=== PATIENT | male | born 1980 | race Caucasian/White ===

== ENCOUNTER 2018-02-07 10:22 | Observation (INO) | payer OTHER ==
[2018-02-07] MEDS ORDERED: Sodium Chloride 0.9% 2.5 ML Syringe FLUSH PRN (10:50)
[2018-02-07] MEDS ORDERED: Sodium Chloride 0.9% 10 ML Syringe FLUSH PRN (10:50)
[2018-02-07] MEDS ORDERED: Sodium Chloride 0.9% 1,000 ML IV ONE (10:51)
[2018-02-07] MEDS ORDERED: Pantoprazole 40 MG Vial IVPUSH ONE (10:51)
[2018-02-07] MEDS ORDERED: Ondansetron 4 MG/2 ML SDV IVPUSH ONE (10:51)
--- NOTE | 2018-02-07 10:55 | EDM.PDOC ---
ED HPI GENERAL MEDICAL PROBLEM - General Chief Complaint: Gastrointestinal Problem Stated Complaint: VOMITING BLOOD Time Seen by Provider: 02/07/18 10:41 - History of Present Illness INITIAL COMMENTS - FREE TEXT/NARRATIVE: HISTORY AND PHYSICAL: History of present illness: The patient is a 37-year-old male who presents with complaints of vomiting for the last 3 days which has been mostly what he has been eating as well as bile were clear and today he noticed some blood in the vomitus and was concerned. He has had upper abdominal/epigastric pain on and off for the last 3 days and has had nausea with the pain started after the vomiting. He's had no chest pain shortness of breath fevers or chills and no diarrhea. He had a normal bowel movement today was not black or bloody and not diarrhea. He says he ate [place] food 3 days ago at a restaurant but he is not sure if that started the process. He has had no exotic travel and he does have a history of "ulcer disease" that was diagnosed clinically and he has never had an endoscopy. He was on medications for this years ago but has not had problems recently. He has no history of food intolerance and does drink large amounts of caffeine but no alcohol. Currently in the ED he is nauseated and having some dry heaves and says he has some epigastric discomfort but it is not excruciating. Review of systems: As per history of present illness and below otherwise all systems reviewed and negative. Past medical history: As per history of present illness and as reviewed below otherwise noncontributory. Surgical history: As per history of present illness and as reviewed below otherwise noncontributory. Social history: No reported history of drug or alcohol abuse. Family history: As per history of present illness and as reviewed below otherwise noncontributory. Physical exam: General: Well-developed well-nourished overweight man who is nontoxic and vital signs are noted by me. HEENT: Atraumatic, normocephalic, negative for conjunctival pallor or scleral icterus, mucous membranes tacky, throat clear, neck supple, nontender, trachea midline. Lungs: Clear to auscultation, breath sounds equal bilaterally, chest nontender. There is no tenderness with palpation of the chest wall no crepitus appreciated Heart: S1S2, regular rate and rhythm no overt murmurs Abdomen: Soft, nondistended, mild epigastric tenderness on palpation and there is no rebound or guarding. Bowel sounds are normoactive Negative for masses or hepatosplenomegaly. Pelvis: Stable nontender. Genitourinary: Deferred. Rectal: Deferred. Extremities: Atraumatic, no pedal edema and full range of motion without defects or deficits. Neurovascular unremarkable. Neuro: Awake, alert, oriented. Cranial nerves II through XII unremarkable. Cerebellum unremarkable. Motor and sensory unremarkable throughout. Exam nonfocal. Diagnostics: CBC CMP amylase lipase UA H. pylori abdominal and chest x-rays Therapeutics: IV fluids Zofran and Protonix Zosyn 1350; this was discussed with Dr. Lama with respect to the WBC count CT scan findings and the H. pylori positive status. She would like to observe the patient overnight and would like IV fluids at maintenance as well as Zosyn to be started. I've also discussed all testing results with the patient and he is agreeable to stay in the hospital. Impression: Duodenal ulcer disease H. pylori positive Definitive disposition and diagnosis as appropriate pending reevaluation and review of above. throat Pain Score (Numeric/FACES): 6 - Related Data Allergies Allergy/AdvReac Type Severity Reaction Status Date / Time No Known Allergies Allergy Verified 02/07/18 10:33 Home Meds: Home Meds . [No Known Home Meds] 05/07/16 [History] Past Medical History - Past Health History Medical/Surgical History: Denies Medical/Surgical History - Infectious Disease History Infectious Disease History: Reports: Chicken Pox Social & Family History - Family History Family Medical History: Noncontributory - Tobacco Use Smoking Status *Q: Current Every Day Smoker Years of Tobacco use: 17 Packs/Tins Daily: 2 - Caffeine Use Caffeine Use: Reports: Soda - Recreational Drug Use Recreational Drug Use: No ED ROS GENERAL - Review of Systems Review Of Systems: ROS reveals no pertinent complaints other than HPI. ED EXAM, GENERAL - Physical Exam Exam: See Below (See dictation) Course - Vital Signs Last Recorded V/S: Last Vital Signs Temp 36.3 C 02/07/18 10:31 Pulse 80 02/07/18 10:31 Resp 16 02/07/18 10:31 BP 146/94 H 02/07/18 10:31 Pulse Ox 95 02/07/18 10:31 - Orders/Labs/Meds Orders: Active Orders 24 hr Category Date Time Status Patient Status [ADT] Stat ADT 02/07/18 13:57 Active UA W/MICROSCOPIC [URIN] Stat Lab 02/07/18 13:00 Ordered Lactated Ringers [Ringers, Lactated] 1,000 ml Med 02/07/18 14:00 Active IV ASDIRECTED Piperacillin/Tazobactam [Piperacil-Tazobact] 4.5 gm Med 02/07/18 13:56 Active Sodium Chloride 0.9% [Normal Saline] 100 ml IV ONETIME Sodium Chloride 0.9% [Saline Flush] Med 02/07/18 10:50 Active 10 ml FLUSH ASDIRECTED PRN Sodium Chloride 0.9% [Saline Flush] Med 02/07/18 10:50 Active 2.5 ml FLUSH ASDIRECTED PRN Saline Lock Insert [OM.PC] Stat Oth 02/07/18 10:50 Ordered Medication Orders Lactated Ringer's (Ringers, Lactated) 1,000 mls @ 150 mls/hr IV ASDIRECTED FREDDY Piperacillin Sod/Tazobactam (Sod 4.5 gm/ Sodium Chloride) 100 mls @ 100 mls/hr IV ONETIME ONE Stop: 02/07/18 14:55 Sodium Chloride (Saline Flush) 10 ml FLUSH ASDIRECTED PRN PRN Reason: Keep Vein Open Sodium Chloride (Saline Flush) 2.5 ml FLUSH ASDIRECTED PRN PRN Reason: Keep Vein Open Labs: Laboratory Tests 02/07/18 02/07/18 02/07/18 Range/Units 11:05 11:05 11:05 WBC 21.66 H (4.0-11.0) K/uL RBC 5.81 (4.50-5.90) M/uL Hgb 17.6 H (13.0-17.0) g/dL Hct 49.5 (38.0-50.0) % MCV 85.2 (80.0-98.0) fL MCH 30.3 (27.0-32.0) pg MCHC 35.6 (31.0-37.0) g/dL RDW Std Deviation 39.0 (28.0-62.0) fl RDW Coeff of Rusty 13 (11.0-15.0) % Plt Count 308 (150-400) K/uL MPV 10.00 (7.40-12.00) fL Add Manual Diff YES Neutrophils % (Manual) 89 H (48.0-80.0) % Band Neutrophils % 2 % Lymphocytes % (Manual) 9 L (16.0-40.0) % Nucleated RBC % 0.0 /100WBC Absolute Seg Neuts 19.3 H (1.4-5.7) Band Neutrophils # 0.4 Lymphocytes # (Manual) 1.9 (0.6-2.4) Nucleated RBCs # 0 K/uL Lactate (0.20-2.00) mmol/L Sodium 135 L (136-148) mmol/L Potassium 3.6 (3.5-5.1) mmol/L Chloride 94 L (98-107) mmol/L Carbon Dioxide 32.7 H (21.0-32.0) mmol/L BUN 16 (7.0-18.0) mg/dL Creatinine 0.9 (0.8-1.3) mg/dL Est Cr Clr Drug Dosing 100.43 mL/min Estimated GFR (MDRD) > 60.0 ml/min Glucose 150 H (74-106) mg/dL Calcium 9.8 (8.5-10.1) mg/dL Total Bilirubin 1.0 (0.2-1.0) mg/dL AST 23 (15-37) IU/L ALT 47 (14-63) IU/L Alkaline Phosphatase 66 (46-116) U/L Total Protein 8.7 H (6.4-8.2) g/dL Albumin 5.0 (3.4-5.0) g/dL Globulin 3.7 H (2.0-3.5) g/dL Albumin/Globulin Ratio 1.4 (1.3-2.8) Amylase 62 (25-115) U/L Lipase 70 L (73-393) U/L Urine Color Urine Appearance Urine pH (5.0-8.0) Ur Specific [place] (1.001-1.035) Urine Protein (NEGATIVE) mg/dL Urine Glucose (UA) (NEGATIVE) mg/dL Urine Ketones (NEGATIVE) mg/dL Urine Occult Blood (NEGATIVE) Urine Nitrite (NEGATIVE) Urine Bilirubin (NEGATIVE) Urine Urobilinogen (<2.0) EU/dL Ur Leukocyte Esterase (NEGATIVE) Urine RBC (0-2/HPF) Urine WBC (0-5/HPF) Ur Epithelial Cells (NONE-FEW) Urine Bacteria (NEGATIVE) H. pylori IgG Antibody POSITIVE H (NEG) 02/07/18 02/07/18 Range/Units 11:57 13:00 WBC (4.0-11.0) K/uL RBC (4.50-5.90) M/uL Hgb (13.0-17.0) g/dL Hct (38.0-50.0) % MCV (80.0-98.0) fL MCH (27.0-32.0) pg MCHC (31.0-37.0) g/dL RDW Std Deviation (28.0-62.0) fl RDW Coeff of Rusty (11.0-15.0) % Plt Count (150-400) K/uL MPV (7.40-12.00) fL Add Manual Diff Neutrophils % (Manual) (48.0-80.0) % Band Neutrophils % % Lymphocytes % (Manual) (16.0-40.0) % Nucleated RBC % /100WBC Absolute Seg Neuts (1.4-5.7) Band Neutrophils # Lymphocytes # (Manual) (0.6-2.4) Nucleated RBCs # K/uL Lactate 1.7 (0.20-2.00) mmol/L Sodium (136-148) mmol/L Potassium (3.5-5.1) mmol/L Chloride (98-107) mmol/L Carbon Dioxide (21.0-32.0) mmol/L BUN (7.0-18.0) mg/dL Creatinine (0.8-1.3) mg/dL Est Cr Clr Drug Dosing mL/min Estimated GFR (MDRD) ml/min Glucose (74-106) mg/dL Calcium (8.5-10.1) mg/dL Total Bilirubin (0.2-1.0) mg/dL AST (15-37) IU/L ALT (14-63) IU/L Alkaline Phosphatase (46-116) U/L Total Protein (6.4-8.2) g/dL Albumin (3.4-5.0) g/dL Globulin (2.0-3.5) g/dL Albumin/Globulin Ratio (1.3-2.8) Amylase (25-115) U/L Lipase (73-393) U/L Urine Color YELLOW Urine Appearance CLEAR Urine pH 7.5 (5.0-8.0) Ur Specific [place] 1.010 (1.001-1.035) Urine Protein NEGATIVE (NEGATIVE) mg/dL Urine Glucose (UA) NEGATIVE (NEGATIVE) mg/dL Urine Ketones TRACE H (NEGATIVE) mg/dL Urine Occult Blood SMALL H (NEGATIVE) Urine Nitrite NEGATIVE (NEGATIVE) Urine Bilirubin NEGATIVE (NEGATIVE) Urine Urobilinogen 0.2 (<2.0) EU/dL Ur Leukocyte Esterase NEGATIVE (NEGATIVE) Urine RBC 1-2 (0-2/HPF) Urine WBC 1-2 (0-5/HPF) Ur Epithelial Cells FEW (NONE-FEW) Urine Bacteria RARE (NEGATIVE) H. pylori IgG Antibody (NEG) Meds: Medications Generic Name Dose Route Start Last Admin Trade Name Jayq PRN Reason Stop Dose Admin Lactated Ringer's 1,000 mls @ 150 mls/hr 02/07/18 14:00 Ringers, Lactated IV ASDIRECTED FREDDY Piperacillin Sod/Tazobactam 100 mls @ 100 mls/hr 02/07/18 13:56 Sod 4.5 gm/ Sodium Chloride IV 02/07/18 14:55 ONETIME ONE Sodium Chloride 10 ml 02/07/18 10:50 Saline Flush FLUSH ASDIRECTED PRN Keep Vein Open Sodium Chloride 2.5 ml 02/07/18 10:50 Saline Flush FLUSH ASDIRECTED PRN Keep Vein Open Discontinued Medications Generic Name Dose Route Start Last Admin Trade Name Freq PRN Reason Stop Dose Admin Sodium Chloride 1,000 mls @ 999 mls/hr 02/07/18 10:51 02/07/18 11:20 Normal Saline IV 02/07/18 11:51 999 mls/hr STAT ONE Administration Iopamidol 100 ml 02/07/18 12:58 02/07/18 13:04 Isovue Multipack-370 (76%) IVPUSH 02/07/18 12:59 100 ml ONETIME STA Administration Ondansetron HCl 4 mg 02/07/18 10:51 02/07/18 11:17 Zofran IVPUSH 02/07/18 10:52 4 mg ONETIME ONE Administration Pantoprazole Sodium 80 mg 02/07/18 10:51 02/07/18 11:20 Protonix Iv IVPUSH 02/07/18 10:52 80 mg .BOLUS ONE Administration Departure - Departure Time of Disposition: 14:04 Disposition: Refer to Observation Condition: Good Clinical Impression: Duodenal ulcer, Helicobacter pylori infection - Discharge Information Referrals: PCP,None [Primary Care Provider] - Forms: ED Department Discharge - My Orders Last 24 Hours: My Active Orders 02/07/18 10:50 Sodium Chloride 0.9% [Saline Flush] 10 ml FLUSH ASDIRECTED PRN Sodium Chloride 0.9% [Saline Flush] 2.5 ml FLUSH ASDIRECTED PRN Saline Lock Insert [OM.PC] Stat 02/07/18 13:00 UA W/MICROSCOPIC [URIN] Stat 02/07/18 13:56 Piperacillin/Tazobactam [Piperacil-Tazobact] 4.5 gm Sodium Chloride 0.9% [ Normal Saline] 100 ml IV ONETIME 02/07/18 13:57 Patient Status [ADT] Stat 02/07/18 14:00 Lactated Ringers [Ringers, Lactated] 1,000 ml IV ASDIRECTED - Assessment/Plan Last 24 Hours: My Active Orders 02/07/18 10:50 Sodium Chloride 0.9% [Saline Flush] 10 ml FLUSH ASDIRECTED PRN Sodium Chloride 0.9% [Saline Flush] 2.5 ml FLUSH ASDIRECTED PRN Saline Lock Insert [OM.PC] Stat 02/07/18 13:00 UA W/MICROSCOPIC [URIN] Stat 02/07/18 13:56 Piperacillin/Tazobactam [Piperacil-Tazobact] 4.5 gm Sodium Chloride 0.9% [ Normal Saline] 100 ml IV ONETIME 02/07/18 13:57 Patient Status [ADT] Stat 02/07/18 14:00 Lactated Ringers [Ringers, Lactated] 1,000 ml IV ASDIRECTED
--- NOTE | 2018-02-07 11:45 | CR ---
EXAMINATION: Chest and Abdomen HISTORY: Pain COMPARISON: 05/07/2016 TECHNIQUE: PA chest and AP and upright views of the abdomen FINDINGS: The lungs are clear without focal consolidation. No pleural effusion or pneumothorax. Cardi ac mediastinal silhouette is normal. Free air under the diaphragm. Bowel gas is noted throughout the colon and rectum without evidence of a bowel obstruction. No organomegaly. No abnormal calcifications projecting over the kidneys. Osseous structures appear normal. IMPRESSION: Grossly unremarkable abdominal series.
[2018-02-07 11:55] LABS: CHLORIDE,CL 94 mmol/L (98-107); SODIUM,NA 135 mmol/L (136-148)
[2018-02-07] MEDS ORDERED: Iopamidol 755 MG/ML 500 ML Multipack Bottle IVPUSH STA (12:58)
[2018-02-07] MEDS ORDERED: Piperacillin/Tazobactam 4.5 GM in Sodium Chloride 0.9% 100 ML IV ONE (13:56)
[2018-02-07] MEDS ORDERED: Lactated Ringers 1,000 ML IV SCH (14:00)
--- NOTE | 2018-02-07 14:00 | CT ---
CT of the abdomen and pelvis with contrast. HISTORY: Pain TECHNIQUE: Axial CT images were obtained of the abdomen and pelvis following administration of 100 mL of Isovue-370 in the right antecubital fossa without complication. Coronal and sagittal reconstructi ons obtained. FINDINGS: The lung bases are clear, no pleural effusion. There is likely mild fatty infiltration of the liver. The spleen, adrenal glands, and pancreas appear normal. The gallbladder is normal. There is mild stranding adjacent to the proximal duodenum. The vi sualized large and small bowel are normal in caliber without evidence of obstruction. No focal ra lonic inflammation or stranding. The kidneys enhance and function symmetrically without evidence of obstructive uropathy. Tiny renal c ortical cysts. The large and small bowel are normal in caliber without evidence of obstruction. No focal pericolonic inflammation or stranding. Appendix is normal. The urinary bladder is normal. No pelvic lymphadenopa thy or free pelvic fluid. No suspicious osseous abnormalities identified. IMPRESSION: 1. Mild stranding adjacent to the proximal duodenum. This may represent duodenitis or peptic ulcer di sease.
[2018-02-07] MEDS ORDERED: Promethazine 25 MG/ML SDV IM PRN (14:52)
[2018-02-07] MEDS ORDERED: diphenhydrAMINE 50 MG/ML SDV IVPUSH PRN (14:52)
[2018-02-07] MEDS ORDERED: Ondansetron 4 MG/2 ML SDV IVPUSH PRN (14:52)
[2018-02-07] MEDS ORDERED: Scopolamine 1.5 MG Transdermal Patch TRDERM PRN (14:54)
[2018-02-07] MEDS ORDERED: HYDROmorphone 1 MG/ML Syringe IVPUSH PRN (14:56)
--- NOTE | 2018-02-07 15:07 | PCM.HP ---
H&P History of Present Illness - General Date of Service: 02/07/18 Source of Information: Patient History Limitations: Reports: No Limitations - History of Present Illness Initial Comments - Free Text/Narative: Patient is a 37-year-old male who presents with 4 days of nausea vomiting and abdominal pain. He has never had anything like this before. He complains of subjective fevers and chills as well as diaphoresis. His abdominal pain is generalized and became worse today. He presented to the emergency room due to some hematemesis. His vital signs were stable on arrival. He was given 1 L of normal saline. CBC showed a leukocytosis of 21,000 with a left shift. His hemoglobin was within normal limits. He denies any changes in his stool. His last bowel movement was yesterday and has been passing gas today. He feels mildly bloated. On physical exam his abdomen is normal. CT scan of the abdomen pelvis show mild stranding on the duodenum suggestive of duodenitis. He tested positive for H. pylori. He was given IV Protonix 80 mg. He feels better and has had one episode of nausea but no vomiting since arrival. Abdomen Pain Score (Numeric/FACES): 1 throat Pain Score (Numeric/FACES): 6 - Related Data Allergies/Adverse Reactions: Allergies Allergy/AdvReac Type Severity Reaction Status Date / Time No Known Allergies Allergy Verified 02/07/18 10:33 Home Medications: Home Meds . [No Known Home Meds] 05/07/16 [History] Past Medical History - Past Health History Medical/Surgical History: Denies Medical/Surgical History - Infectious Disease History Infectious Disease History: Reports: Chicken Pox Social & Family History - Family History Family Medical History: Noncontributory - Tobacco Use Smoking Status *Q: Heavy Tobacco Smoker - Caffeine Use Caffeine Use: Reports: Soda - Alcohol Use Alcohol Use History: No H&P Review of Systems - Review of Systems: Review Of Systems: ROS reveals no pertinent complaints other than HPI. Exam - Exam Exam: See Below - Exam General: Alert, Oriented HEENT: Conjunctiva Clear, Mucosa Moist & [place], Posterior Pharynx Clear Neck: Trachea Midline Lungs: Clear to Auscultation, Normal Respiratory Effort Cardiovascular: Regular Rate, Regular Rhythm GI/Abdominal Exam: Soft, Non-Tender, No Distention, No Mass Back Exam: Normal Inspection, Full Range of Motion Extremities: Normal Inspection, Normal Range of Motion Skin: Warm, Dry, Intact Neuro Extensive - Mental Status: Alert, Oriented x3 Psychiatric: Alert, Normal Affect, Normal Mood - Patient Data Result Diagrams: 02/08/18 04:50 02/08/18 05:03 - Problem List (1) Duodenal ulcer SNOMED Code(s): 79196157 ICD Code: K26.9 - DUODENAL ULCER, UNSP ACUTE OR CHRONIC, W/O HEMOR OR PERF Status: Acute Current Visit: Yes (2) Helicobacter pylori infection SNOMED Code(s): 224408181 ICD Code: A04.8 - OTHER SPECIFIED BACTERIAL INTESTINAL INFECTIONS Status: Acute Current Visit: Yes Problem List Initiated/Reviewed/Updated: Yes Assessment/Plan Comment:: The patient is dehydrated with a high white count and evidence of duodenitis. Will admit to the hospital for IV fluid resuscitation, IV antibiotics, IV Protonix, and bowel rest. He should be kept strictly nothing by mouth for the next 24 hours. I discussed the pathophysiology of H. pylori disease. I explained the need for a diagnostic EGD to look for any duodenal ulceration. We discussed the procedure and expected perioperative course. We discussed the risks including bleeding or perforation. He verbalized understanding and wishes to proceed. The scope will be added on tomorrow.
[2018-02-07] MEDS: Nicotine 14 MG/24 Hr Patch TRDERM SCH (16:59)
[2018-02-07] MEDS: Lactated Ringers 1,000 ML IV SCH (22:16)
[2018-02-07] MEDS: Piperacillin/Tazobactam 3.375 GM in Sodium Chloride 0.9% 50 ML IV SCH (22:18)
[2018-02-08 05:58] LABS: CHLORIDE,CL 103 mmol/L (98-107); SODIUM,NA 138 mmol/L (136-148)
[2018-02-08] MEDS: Lactated Ringers 1,000 ML IV SCH ×3 (06:40→20:27)
[2018-02-08] MEDS: Piperacillin/Tazobactam 3.375 GM in Sodium Chloride 0.9% 50 ML IV SCH (06:41)
[2018-02-08] MEDS ORDERED: Pantoprazole 40 MG Vial IVPUSH SCH (09:00)
[2018-02-08] MEDS: Nicotine 14 MG/24 Hr Patch TRDERM SCH (09:45)
--- NOTE | 2018-02-08 09:59 | PCM.PREANE ---
Preanesthetic Assessment - Anesthesia/Transfusion/Family Hx Anesthesia History: No Prior Anesthesia Family History of Anesthesia Reaction: No - Review of Systems General: No Symptoms Pulmonary: No Symptoms Cardiovascular: No Symptoms Neurological: No Symptoms Other: Reports: None - Physical Assessment NPO Status Date: 02/07/18 ASA Class: 2 Mental Status: Alert & Oriented x3 Airway Class: Mallampati = 1 Dentition: Reports: Normal Dentition ROM/Head Extension: Full Lungs: Clear to Auscultation, Normal Respiratory Effort Cardiovascular: Regular Rate, Regular Rhythm - Allergies Allergies/Adverse Reactions: Allergies Allergy/AdvReac Type Severity Reaction Status Date / Time No Known Allergies Allergy Verified 02/07/18 10:33 - Anesthesia Plan Pre-Op Medication Ordered: None - Acknowledgements Anesthesia Type Planned: MAC Pt an Appropriate Candidate for the Planned Anesthesia: Yes Alternatives and Risks of Anesthesia Discussed w Pt/Guardian: Yes Pt/Guardian Understands and Agrees with Anesthesia Plan: Yes PreAnesthesia Questionnaire - Past Health History Medical/Surgical History: Denies Medical/Surgical History - Infectious Disease History Infectious Disease History: Reports: Chicken Pox - SUBSTANCE USE Smoking Status *Q: Heavy Tobacco Smoker - HOME MEDS Home Medications: Home Meds . [No Known Home Meds] 05/07/16 [History] - CURRENT (IN HOUSE) MEDS Current Meds: Current Medications Discontinued Medications Fentanyl (Sublimaze) Confirm Administered Dose 100 mcg .ROUTE .STK-MED ONE Stop: 02/08/18 09:17 Lidocaine (Xylocaine-Mpf 2%) Confirm Administered Dose 5 ml .ROUTE .STK-MED ONE Stop: 02/08/18 09:17 Midazolam HCl (Versed 1 Mg/Ml) Confirm Administered Dose 2 mg .ROUTE .STK-MED ONE Stop: 02/08/18 09:17 Propofol (Diprivan 20 Ml) Confirm Administered Dose 400 mg .ROUTE .STK-MED ONE Stop: 02/08/18 09:17
--- NOTE | 2018-02-08 11:00 | PCM.OPNOTE ---
- General Post-Op/Procedure Note Date of Surgery/Procedure: 02/08/18 Operative Procedure(s): Diagnostic EGD with biopsy Findings: Severe esophagitis, multiple duodenal ulcers, severe gastritis with superficial ulcers. Pre Op Diagnosis: Duodenitis, H pylori infection Post-Op Diagnosis: Esophagitis, duodenitis, gastritis, duodenal ulcers Anesthesia Technique: [facility] [place] Primary Surgeon: Yanelis Lama Condition: Good
--- NOTE | 2018-02-08 11:02 | PCM.OPNOTE ---
- General Post-Op/Procedure Note Date of Surgery/Procedure: 02/08/18 Operative Procedure(s): Diagnostic EGD and colonoscopy Findings: Severe esophagitis, duodenitis and gastritis. Multiple ulcers of the duodenum. Pre Op Diagnosis: H pylori infection Post-Op Diagnosis: Esophagitis, duodenitis, gastritis, duodenal ulcers. Anesthesia Technique: [facility] [place] Primary Surgeon: Yanelis Lama Condition: Good Free Text/Narrative:: Intake & Output 02/07/18 02/08/18 02/08/18 22:59 06:59 14:59 Intake Total 1050 1050 Output Total 975 Balance 1050 75
--- NOTE | 2018-02-08 11:10 | PCM.HP ---
H&P History of Present Illness - General Date of Service: 02/08/18 Admit Problem/Dx: Admission Diagnosis/Problem Admission Diagnosis/Problem Duodenitis Source of Information: Patient History Limitations: Reports: No Limitations - History of Present Illness Initial Comments - Free Text/Narative: Patient presented to the ED with four days of nausea vomiting and the acute onset of hematemesis. This has been associated with abdominal cramping and pain. He has never had symptoms like this before. He c/o chills and subjective fever as well as diaphoresis. His vitals were stable on arrival. His WBC was 21K. H pylori antigen test was positive. CT abdomen pelvis showed evidence of duodenitis. He denied melana or hematochezia. Abdomen Pain Score (Numeric/FACES): 1 throat Pain Score (Numeric/FACES): 6 - Related Data Allergies/Adverse Reactions: Allergies Allergy/AdvReac Type Severity Reaction Status Date / Time No Known Allergies Allergy Verified 02/07/18 10:33 Home Medications: Home Meds . [No Known Home Meds] 05/07/16 [History] Past Medical History - Past Health History Medical/Surgical History: Denies Medical/Surgical History Gastrointestinal History: Reports: PUD - Infectious Disease History Infectious Disease History: Reports: Chicken Pox Social & Family History - Family History Family Medical History: Noncontributory - Tobacco Use Smoking Status *Q: Heavy Tobacco Smoker Years of Tobacco use: 18 Packs/Tins Daily: 2 Used Tobacco, but Quit: No Second Hand Smoke Exposure: No - Caffeine Use Caffeine Use: Reports: Soda - Recreational Drug Use Recreational Drug Use: No H&P Review of Systems - Review of Systems: Review Of Systems: ROS reveals no pertinent complaints other than HPI. Exam - Exam Exam: See Below - Vital Signs Vital Signs: Last Vital Signs Temp 37.1 C 02/08/18 07:41 Pulse 75 02/08/18 07:41 Resp 17 02/08/18 07:41 BP 109/73 02/08/18 07:41 Pulse Ox 92 L 02/08/18 07:41 Weight: 104.326 kg - Exam General: Alert, Oriented HEENT: Conjunctiva Clear, Mucosa Moist & [place], Posterior Pharynx Clear Neck: Supple, Trachea Midline Lungs: Clear to Auscultation, Normal Respiratory Effort Cardiovascular: Regular Rate, Regular Rhythm GI/Abdominal Exam: Normal Bowel Sounds, Soft, Non-Tender, No Distention, No Mass Back Exam: Normal Inspection, Full Range of Motion Extremities: Normal Inspection, Normal Range of Motion - Patient Data Lab Results Last 24 hrs: Laboratory Results - last 24 hr 02/07/18 02/07/18 02/07/18 Range/Units 11:05 11:05 11:05 WBC 21.66 H (4.0-11.0) K/uL RBC 5.81 (4.50-5.90) M/uL Hgb 17.6 H (13.0-17.0) g/dL Hct 49.5 (38.0-50.0) % MCV 85.2 (80.0-98.0) fL MCH 30.3 (27.0-32.0) pg MCHC 35.6 (31.0-37.0) g/dL RDW Std Deviation 39.0 (28.0-62.0) fl RDW Coeff of Rusty 13 (11.0-15.0) % Plt Count 308 (150-400) K/uL MPV 10.00 (7.40-12.00) fL Neut % (Auto) (48.0-80.0) % Lymph % (Auto) (16.0-40.0) % Will % (Auto) (0.0-15.0) % Eos % (Auto) (0.0-7.0) % Baso % (Auto) (0.0-1.5) % Neut # (Auto) (1.4-5.7) K/uL Lymph # (Auto) (0.6-2.4) K/uL Will # (Auto) (0.0-0.8) K/uL Eos # (Auto) (0.0-0.7) K/uL Baso # (Auto) (0.0-0.1) K/uL Add Manual Diff YES Neutrophils % (Manual) 89 H (48.0-80.0) % Band Neutrophils % 2 % Lymphocytes % (Manual) 9 L (16.0-40.0) % Nucleated RBC % 0.0 /100WBC Absolute Seg Neuts 19.3 H (1.4-5.7) Band Neutrophils # 0.4 Lymphocytes # (Manual) 1.9 (0.6-2.4) Nucleated RBCs # 0 K/uL Lactate (0.20-2.00) mmol/L Sodium 135 L (136-148) mmol/L Potassium 3.6 (3.5-5.1) mmol/L Chloride 94 L (98-107) mmol/L Carbon Dioxide 32.7 H (21.0-32.0) mmol/L BUN 16 (7.0-18.0) mg/dL Creatinine 0.9 (0.8-1.3) mg/dL Est Cr Clr Drug Dosing 100.43 mL/min Estimated GFR (MDRD) > 60.0 ml/min Glucose 150 H (74-106) mg/dL Calcium 9.8 (8.5-10.1) mg/dL Total Bilirubin 1.0 (0.2-1.0) mg/dL AST 23 (15-37) IU/L ALT 47 (14-63) IU/L Alkaline Phosphatase 66 (46-116) U/L Total Protein 8.7 H (6.4-8.2) g/dL Albumin 5.0 (3.4-5.0) g/dL Globulin 3.7 H (2.0-3.5) g/dL Albumin/Globulin Ratio 1.4 (1.3-2.8) Amylase 62 (25-115) U/L Lipase 70 L (73-393) U/L Urine Color Urine Appearance Urine pH (5.0-8.0) Ur Specific [place] (1.001-1.035) Urine Protein (NEGATIVE) mg/dL Urine Glucose (UA) (NEGATIVE) mg/dL Urine Ketones (NEGATIVE) mg/dL Urine Occult Blood (NEGATIVE) Urine Nitrite (NEGATIVE) Urine Bilirubin (NEGATIVE) Urine Urobilinogen (<2.0) EU/dL Ur Leukocyte Esterase (NEGATIVE) Urine RBC (0-2/HPF) Urine WBC (0-5/HPF) Ur Epithelial Cells (NONE-FEW) Urine Bacteria (NEGATIVE) H. pylori IgG Antibody POSITIVE H (NEG) 02/07/18 02/07/18 02/08/18 Range/Units 11:57 13:00 04:50 WBC 14.86 H (4.0-11.0) K/uL RBC 5.04 (4.50-5.90) M/uL Hgb 15.0 (13.0-17.0) g/dL Hct 44.2 (38.0-50.0) % MCV 87.7 (80.0-98.0) fL MCH 29.8 (27.0-32.0) pg MCHC 33.9 (31.0-37.0) g/dL RDW Std Deviation 41.2 (28.0-62.0) fl RDW Coeff of Rusty 13 (11.0-15.0) % Plt Count 243 (150-400) K/uL MPV 10.00 (7.40-12.00) fL Neut % (Auto) 72.7 (48.0-80.0) % Lymph % (Auto) 16.2 (16.0-40.0) % Will % (Auto) 10.5 (0.0-15.0) % Eos % (Auto) 0.5 (0.0-7.0) % Baso % (Auto) 0.1 (0.0-1.5) % Neut # (Auto) 10.8 H (1.4-5.7) K/uL Lymph # (Auto) 2.4 (0.6-2.4) K/uL Will # (Auto) 1.6 H (0.0-0.8) K/uL Eos # (Auto) 0.1 (0.0-0.7) K/uL Baso # (Auto) 0.0 (0.0-0.1) K/uL Add Manual Diff Neutrophils % (Manual) (48.0-80.0) % Band Neutrophils % % Lymphocytes % (Manual) (16.0-40.0) % Nucleated RBC % 0.0 /100WBC Absolute Seg Neuts (1.4-5.7) Band Neutrophils # Lymphocytes # (Manual) (0.6-2.4) Nucleated RBCs # 0 K/uL Lactate 1.7 (0.20-2.00) mmol/L Sodium (136-148) mmol/L Potassium (3.5-5.1) mmol/L Chloride (98-107) mmol/L Carbon Dioxide (21.0-32.0) mmol/L BUN (7.0-18.0) mg/dL Creatinine (0.8-1.3) mg/dL Est Cr Clr Drug Dosing mL/min Estimated GFR (MDRD) ml/min Glucose (74-106) mg/dL Calcium (8.5-10.1) mg/dL Total Bilirubin (0.2-1.0) mg/dL AST (15-37) IU/L ALT (14-63) IU/L Alkaline Phosphatase (46-116) U/L Total Protein (6.4-8.2) g/dL Albumin (3.4-5.0) g/dL Globulin (2.0-3.5) g/dL Albumin/Globulin Ratio (1.3-2.8) Amylase (25-115) U/L Lipase (73-393) U/L Urine Color YELLOW Urine Appearance CLEAR Urine pH 7.5 (5.0-8.0) Ur Specific [place] 1.010 (1.001-1.035) Urine Protein NEGATIVE (NEGATIVE) mg/dL Urine Glucose (UA) NEGATIVE (NEGATIVE) mg/dL Urine Ketones TRACE H (NEGATIVE) mg/dL Urine Occult Blood SMALL H (NEGATIVE) Urine Nitrite NEGATIVE (NEGATIVE) Urine Bilirubin NEGATIVE (NEGATIVE) Urine Urobilinogen 0.2 (<2.0) EU/dL Ur Leukocyte Esterase NEGATIVE (NEGATIVE) Urine RBC 1-2 (0-2/HPF) Urine WBC 1-2 (0-5/HPF) Ur Epithelial Cells FEW (NONE-FEW) Urine Bacteria RARE (NEGATIVE) H. pylori IgG Antibody (NEG) 02/08/18 Range/Units 05:03 WBC (4.0-11.0) K/uL RBC (4.50-5.90) M/uL Hgb (13.0-17.0) g/dL Hct (38.0-50.0) % MCV (80.0-98.0) fL MCH (27.0-32.0) pg MCHC (31.0-37.0) g/dL RDW Std Deviation (28.0-62.0) fl RDW Coeff of Rusty (11.0-15.0) % Plt Count (150-400) K/uL MPV (7.40-12.00) fL Neut % (Auto) (48.0-80.0) % Lymph % (Auto) (16.0-40.0) % Will % (Auto) (0.0-15.0) % Eos % (Auto) (0.0-7.0) % Baso % (Auto) (0.0-1.5) % Neut # (Auto) (1.4-5.7) K/uL Lymph # (Auto) (0.6-2.4) K/uL Will # (Auto) (0.0-0.8) K/uL Eos # (Auto) (0.0-0.7) K/uL Baso # (Auto) (0.0-0.1) K/uL Add Manual Diff Neutrophils % (Manual) (48.0-80.0) % Band Neutrophils % % Lymphocytes % (Manual) (16.0-40.0) % Nucleated RBC % /100WBC Absolute Seg Neuts (1.4-5.7) Band Neutrophils # Lymphocytes # (Manual) (0.6-2.4) Nucleated RBCs # K/uL Lactate (0.20-2.00) mmol/L Sodium 138 (136-148) mmol/L Potassium 3.9 (3.5-5.1) mmol/L Chloride 103 (98-107) mmol/L Carbon Dioxide 27.8 (21.0-32.0) mmol/L BUN 13 (7.0-18.0) mg/dL Creatinine 1.0 (0.8-1.3) mg/dL Est Cr Clr Drug Dosing 90.38 mL/min Estimated GFR (MDRD) > 60.0 ml/min Glucose 107 H (74-106) mg/dL Calcium 8.6 (8.5-10.1) mg/dL Total Bilirubin (0.2-1.0) mg/dL AST (15-37) IU/L ALT (14-63) IU/L Alkaline Phosphatase (46-116) U/L Total Protein (6.4-8.2) g/dL Albumin (3.4-5.0) g/dL Globulin (2.0-3.5) g/dL Albumin/Globulin Ratio (1.3-2.8) Amylase (25-115) U/L Lipase (73-393) U/L Urine Color Urine Appearance Urine pH (5.0-8.0) Ur Specific [place] (1.001-1.035) Urine Protein (NEGATIVE) mg/dL Urine Glucose (UA) (NEGATIVE) mg/dL Urine Ketones (NEGATIVE) mg/dL Urine Occult Blood (NEGATIVE) Urine Nitrite (NEGATIVE) Urine Bilirubin (NEGATIVE) Urine Urobilinogen (<2.0) EU/dL Ur Leukocyte Esterase (NEGATIVE) Urine RBC (0-2/HPF) Urine WBC (0-5/HPF) Ur Epithelial Cells (NONE-FEW) Urine Bacteria (NEGATIVE) H. pylori IgG Antibody (NEG) Result Diagrams: 02/08/18 04:50 02/08/18 05:03 - Problem List (1) Duodenal ulcer SNOMED Code(s): 74732563 ICD Code: K26.9 - DUODENAL ULCER, UNSP ACUTE OR CHRONIC, W/O HEMOR OR PERF Status: Acute Current Visit: Yes (2) Helicobacter pylori infection SNOMED Code(s): 998358172 ICD Code: A04.8 - OTHER SPECIFIED BACTERIAL INTESTINAL INFECTIONS Status: Acute Current Visit: Yes Problem List Initiated/Reviewed/Updated: Yes Orders Last 24hrs: Active Orders 24 hr Category Date Time Status Patient Status [ADT] Routine ADT 02/07/18 14:52 Active Intake and Output [RC] Care 02/07/18 14:53 Active Oxygen Therapy [RC] PRN Care 02/07/18 14:52 Active Up ad Seema [RC] ASDIRECTED Care 02/07/18 14:52 Active Vital Signs [RC] Q4H Care 02/07/18 14:52 Active Clear Liquid Diet [DIET] Diet 02/08/18 Dinner Ordered UA W/MICROSCOPIC [URIN] Stat Lab 02/07/18 13:00 Ordered Amoxicillin [Amoxil] Med 02/08/18 11:15 Ordered 1,000 mg PO BID Clarithromycin [Biaxin] Med 02/08/18 11:15 Ordered 500 mg PO BID HYDROmorphone [Dilaudid] Med 02/07/18 14:56 Active 0.5 mg IVPUSH Q1H PRN Lactated Ringers [Ringers, Lactated] 1,000 ml Med 02/07/18 15:00 Active IV ASDIRECTED Nicotine [Habitrol] Med 02/07/18 15:00 Active 14 mg TRDERM DAILY Ondansetron [Zofran] Med 02/07/18 14:52 Active 4 mg IVPUSH Q6H PRN Pantoprazole [ProTONIX] Med 02/08/18 17:00 Ordered 40 mg PO BIDAC Promethazine [Phenergan] Med 02/07/18 14:52 Active 25 mg IM Q6H PRN Scopolamine [Transderm-Scop] Med 02/07/18 14:54 Active 1.5 mg TRDERM Q72H PRN Sodium Chloride 0.9% [Saline Flush] Med 02/07/18 10:50 Active 10 ml FLUSH ASDIRECTED PRN Sodium Chloride 0.9% [Saline Flush] Med 02/07/18 10:50 Active 2.5 ml FLUSH ASDIRECTED PRN Sucralfate [Carafate] Med 02/08/18 11:30 Ordered 1 gm PO QIDACANDBED diphenhydrAMINE [Benadryl] Med 02/07/18 14:52 Active 25 mg IVPUSH Q4H PRN Saline Lock Insert [OM.PC] Stat Oth 02/07/18 10:50 Ordered Resuscitation Status Routine Resus Stat 02/07/18 14:52 Ordered Medication Orders Amoxicillin (Amoxil) 1,000 mg PO BID [facility] Clarithromycin (Biaxin) 500 mg PO BID [facility] Diphenhydramine HCl (Benadryl) 25 mg IVPUSH Q4H PRN PRN Reason: Itching Hydromorphone HCl (Dilaudid) 0.5 mg IVPUSH Q1H PRN PRN Reason: Abdominal Pain Last Admin: 02/07/18 19:27 Dose: 0.5 mg Lactated Ringer's (Ringers, Lactated) 1,000 mls @ 125 mls/hr IV ASDIRECTED [facility] Last Admin: 02/08/18 06:40 Dose: 125 mls/hr Infusion: 02/08/18 06:16 Dose: 125 mls/hr Admin: 02/07/18 22:16 Dose: 125 mls/hr Nicotine (Habitrol) 14 mg TRDERM DAILY [facility] Last Admin: 02/08/18 09:45 Dose: 14 mg Admin: 02/07/18 16:59 Dose: 14 mg Ondansetron HCl (Zofran) 4 mg IVPUSH Q6H PRN PRN Reason: Nausea/Vomiting Pantoprazole Sodium (Protonix) 40 mg PO BIDAC [facility] Promethazine HCl (Phenergan) 25 mg IM Q6H PRN PRN Reason: Nausea Scopolamine (Transderm-Scop) 1.5 mg TRDERM Q72H PRN PRN Reason: Nausea Sodium Chloride (Saline Flush) 10 ml FLUSH ASDIRECTED PRN PRN Reason: Keep Vein Open Sodium Chloride (Saline Flush) 2.5 ml FLUSH ASDIRECTED PRN PRN Reason: Keep Vein Open Sucralfate (Carafate) 1 gm PO QIDACANDBED [facility] Assessment/Plan Comment:: Patient is a 37 year old male with duodenitis and most likely ulcers from an acute H pylori infection. Will admit for close observation, IV fluids, IV antibiotics, and bowel rest. Will perform a diagnostic EGD tomorrow. We discussed the procedure, expected perioperative course and risks including bleeding or perforation. The patient verbalized understanding and wished to proceed.
--- NOTE | 2018-02-08 11:12 | PCM.PN ---
- General Info Date of Service: 02/08/18 Functional Status: Reports: Pain Controlled, Urinating - Review of Systems General: Reports: No Symptoms Pulmonary: Reports: No Symptoms Cardiovascular: Reports: No Symptoms Gastrointestinal: Reports: Abdominal Pain (mild), Flatus, Nausea. Denies: Constipation, Vomiting - Patient Data Vitals - Most Recent: Last Vital Signs Temp 37.1 C 02/08/18 07:41 Pulse 75 02/08/18 07:41 Resp 17 02/08/18 07:41 BP 109/73 02/08/18 07:41 Pulse Ox 92 L 02/08/18 07:41 Weight - Most Recent: 104.326 kg I&O - Last 24 Hours: Intake & Output 02/07/18 02/08/18 02/08/18 22:59 06:59 14:59 Intake Total 1050 1050 Output Total 975 Balance 1050 75 Lab Results Last 24 Hours: Laboratory Results - last 24 hr 02/07/18 02/07/18 02/07/18 Range/Units 11:05 11:05 11:05 WBC 21.66 H (4.0-11.0) K/uL RBC 5.81 (4.50-5.90) M/uL Hgb 17.6 H (13.0-17.0) g/dL Hct 49.5 (38.0-50.0) % MCV 85.2 (80.0-98.0) fL MCH 30.3 (27.0-32.0) pg MCHC 35.6 (31.0-37.0) g/dL RDW Std Deviation 39.0 (28.0-62.0) fl RDW Coeff of Rusty 13 (11.0-15.0) % Plt Count 308 (150-400) K/uL MPV 10.00 (7.40-12.00) fL Neut % (Auto) (48.0-80.0) % Lymph % (Auto) (16.0-40.0) % [place] % (Auto) (0.0-15.0) % Eos % (Auto) (0.0-7.0) % Baso % (Auto) (0.0-1.5) % Neut # (Auto) (1.4-5.7) K/uL Lymph # (Auto) (0.6-2.4) K/uL [place] # (Auto) (0.0-0.8) K/uL Eos # (Auto) (0.0-0.7) K/uL Baso # (Auto) (0.0-0.1) K/uL Add Manual Diff YES Neutrophils % (Manual) 89 H (48.0-80.0) % Band Neutrophils % 2 % Lymphocytes % (Manual) 9 L (16.0-40.0) % Nucleated RBC % 0.0 /100WBC Absolute Seg Neuts 19.3 H (1.4-5.7) Band Neutrophils # 0.4 Lymphocytes # (Manual) 1.9 (0.6-2.4) Nucleated RBCs # 0 K/uL Lactate (0.20-2.00) mmol/L Sodium 135 L (136-148) mmol/L Potassium 3.6 (3.5-5.1) mmol/L Chloride 94 L (98-107) mmol/L Carbon Dioxide 32.7 H (21.0-32.0) mmol/L BUN 16 (7.0-18.0) mg/dL Creatinine 0.9 (0.8-1.3) mg/dL Est Cr Clr Drug Dosing 100.43 mL/min Estimated GFR (MDRD) > 60.0 ml/min Glucose 150 H (74-106) mg/dL Calcium 9.8 (8.5-10.1) mg/dL Total Bilirubin 1.0 (0.2-1.0) mg/dL AST 23 (15-37) IU/L ALT 47 (14-63) IU/L Alkaline Phosphatase 66 (46-116) U/L Total Protein 8.7 H (6.4-8.2) g/dL Albumin 5.0 (3.4-5.0) g/dL Globulin 3.7 H (2.0-3.5) g/dL Albumin/Globulin Ratio 1.4 (1.3-2.8) Amylase 62 (25-115) U/L Lipase 70 L (73-393) U/L Urine Color Urine Appearance Urine pH (5.0-8.0) Ur Specific [place] (1.001-1.035) Urine Protein (NEGATIVE) mg/dL Urine Glucose (UA) (NEGATIVE) mg/dL Urine Ketones (NEGATIVE) mg/dL Urine Occult Blood (NEGATIVE) Urine Nitrite (NEGATIVE) Urine Bilirubin (NEGATIVE) Urine Urobilinogen (<2.0) EU/dL Ur Leukocyte Esterase (NEGATIVE) Urine RBC (0-2/HPF) Urine WBC (0-5/HPF) Ur Epithelial Cells (NONE-FEW) Urine Bacteria (NEGATIVE) H. pylori IgG Antibody POSITIVE H (NEG) 02/07/18 02/07/18 02/08/18 Range/Units 11:57 13:00 04:50 WBC 14.86 H (4.0-11.0) K/uL RBC 5.04 (4.50-5.90) M/uL Hgb 15.0 (13.0-17.0) g/dL Hct 44.2 (38.0-50.0) % MCV 87.7 (80.0-98.0) fL MCH 29.8 (27.0-32.0) pg MCHC 33.9 (31.0-37.0) g/dL RDW Std Deviation 41.2 (28.0-62.0) fl RDW Coeff of [place] 13 (11.0-15.0) % Plt Count 243 (150-400) K/uL MPV 10.00 (7.40-12.00) fL Neut % (Auto) 72.7 (48.0-80.0) % Lymph % (Auto) 16.2 (16.0-40.0) % [place] % (Auto) 10.5 (0.0-15.0) % Eos % (Auto) 0.5 (0.0-7.0) % Baso % (Auto) 0.1 (0.0-1.5) % Neut # (Auto) 10.8 H (1.4-5.7) K/uL Lymph # (Auto) 2.4 (0.6-2.4) K/uL [place] # (Auto) 1.6 H (0.0-0.8) K/uL Eos # (Auto) 0.1 (0.0-0.7) K/uL Baso # (Auto) 0.0 (0.0-0.1) K/uL Add Manual Diff Neutrophils % (Manual) (48.0-80.0) % Band Neutrophils % % Lymphocytes % (Manual) (16.0-40.0) % Nucleated RBC % 0.0 /100WBC Absolute Seg Neuts (1.4-5.7) Band Neutrophils # Lymphocytes # (Manual) (0.6-2.4) Nucleated RBCs # 0 K/uL Lactate 1.7 (0.20-2.00) mmol/L Sodium (136-148) mmol/L Potassium (3.5-5.1) mmol/L Chloride (98-107) mmol/L Carbon Dioxide (21.0-32.0) mmol/L BUN (7.0-18.0) mg/dL Creatinine (0.8-1.3) mg/dL Est Cr Clr Drug Dosing mL/min Estimated GFR (MDRD) ml/min Glucose (74-106) mg/dL Calcium (8.5-10.1) mg/dL Total Bilirubin (0.2-1.0) mg/dL AST (15-37) IU/L ALT (14-63) IU/L Alkaline Phosphatase (46-116) U/L Total Protein (6.4-8.2) g/dL Albumin (3.4-5.0) g/dL Globulin (2.0-3.5) g/dL Albumin/Globulin Ratio (1.3-2.8) Amylase (25-115) U/L Lipase (73-393) U/L Urine Color YELLOW Urine Appearance CLEAR Urine pH 7.5 (5.0-8.0) Ur Specific [place] 1.010 (1.001-1.035) Urine Protein NEGATIVE (NEGATIVE) mg/dL Urine Glucose (UA) NEGATIVE (NEGATIVE) mg/dL Urine Ketones TRACE H (NEGATIVE) mg/dL Urine Occult Blood SMALL H (NEGATIVE) Urine Nitrite NEGATIVE (NEGATIVE) Urine Bilirubin NEGATIVE (NEGATIVE) Urine Urobilinogen 0.2 (<2.0) EU/dL Ur Leukocyte Esterase NEGATIVE (NEGATIVE) Urine RBC 1-2 (0-2/HPF) Urine WBC 1-2 (0-5/HPF) Ur Epithelial Cells FEW (NONE-FEW) Urine Bacteria RARE (NEGATIVE) H. pylori IgG Antibody (NEG) 02/08/18 Range/Units 05:03 WBC (4.0-11.0) K/uL RBC (4.50-5.90) M/uL Hgb (13.0-17.0) g/dL Hct (38.0-50.0) % MCV (80.0-98.0) fL MCH (27.0-32.0) pg MCHC (31.0-37.0) g/dL RDW Std Deviation (28.0-62.0) fl RDW Coeff of Rusty (11.0-15.0) % Plt Count (150-400) K/uL MPV (7.40-12.00) fL Neut % (Auto) (48.0-80.0) % Lymph % (Auto) (16.0-40.0) % [place] % (Auto) (0.0-15.0) % Eos % (Auto) (0.0-7.0) % Baso % (Auto) (0.0-1.5) % Neut # (Auto) (1.4-5.7) K/uL Lymph # (Auto) (0.6-2.4) K/uL [place] # (Auto) (0.0-0.8) K/uL Eos # (Auto) (0.0-0.7) K/uL Baso # (Auto) (0.0-0.1) K/uL Add Manual Diff Neutrophils % (Manual) (48.0-80.0) % Band Neutrophils % % Lymphocytes % (Manual) (16.0-40.0) % Nucleated RBC % /100WBC Absolute Seg Neuts (1.4-5.7) Band Neutrophils # Lymphocytes # (Manual) (0.6-2.4) Nucleated RBCs # K/uL Lactate (0.20-2.00) mmol/L Sodium 138 (136-148) mmol/L Potassium 3.9 (3.5-5.1) mmol/L Chloride 103 (98-107) mmol/L Carbon Dioxide 27.8 (21.0-32.0) mmol/L BUN 13 (7.0-18.0) mg/dL Creatinine 1.0 (0.8-1.3) mg/dL Est Cr Clr Drug Dosing 90.38 mL/min Estimated GFR (MDRD) > 60.0 ml/min Glucose 107 H (74-106) mg/dL Calcium 8.6 (8.5-10.1) mg/dL Total Bilirubin (0.2-1.0) mg/dL AST (15-37) IU/L ALT (14-63) IU/L Alkaline Phosphatase (46-116) U/L Total Protein (6.4-8.2) g/dL Albumin (3.4-5.0) g/dL Globulin (2.0-3.5) g/dL Albumin/Globulin Ratio (1.3-2.8) Amylase (25-115) U/L Lipase (73-393) U/L Urine Color Urine Appearance Urine pH (5.0-8.0) Ur Specific [place] (1.001-1.035) Urine Protein (NEGATIVE) mg/dL Urine Glucose (UA) (NEGATIVE) mg/dL Urine Ketones (NEGATIVE) mg/dL Urine Occult Blood (NEGATIVE) Urine Nitrite (NEGATIVE) Urine Bilirubin (NEGATIVE) Urine Urobilinogen (<2.0) EU/dL Ur Leukocyte Esterase (NEGATIVE) Urine RBC (0-2/HPF) Urine WBC (0-5/HPF) Ur Epithelial Cells (NONE-FEW) Urine Bacteria (NEGATIVE) H. pylori IgG Antibody (NEG) Med Orders - Current: Current Medications Amoxicillin (Amoxil) 1,000 mg PO BID [facility] Clarithromycin (Biaxin) 500 mg PO BID [facility] Diphenhydramine HCl (Benadryl) 25 mg IVPUSH Q4H PRN PRN Reason: Itching Hydromorphone HCl (Dilaudid) 0.5 mg IVPUSH Q1H PRN PRN Reason: Abdominal Pain Last Admin: 02/07/18 19:27 Dose: 0.5 mg Lactated Ringer's (Ringers, Lactated) 1,000 mls @ 125 mls/hr IV ASDIRECTED [facility] Last Admin: 02/08/18 06:40 Dose: 125 mls/hr Nicotine (Habitrol) 14 mg TRDERM DAILY [facility] Last Admin: 02/08/18 09:45 Dose: 14 mg Ondansetron HCl (Zofran) 4 mg IVPUSH Q6H PRN PRN Reason: Nausea/Vomiting Pantoprazole Sodium (Protonix) 40 mg PO BIDAC [facility] Promethazine HCl (Phenergan) 25 mg IM Q6H PRN PRN Reason: Nausea Scopolamine (Transderm-Scop) 1.5 mg TRDERM Q72H PRN PRN Reason: Nausea Sodium Chloride (Saline Flush) 10 ml FLUSH ASDIRECTED PRN PRN Reason: Keep Vein Open Sodium Chloride (Saline Flush) 2.5 ml FLUSH ASDIRECTED PRN PRN Reason: Keep Vein Open Sucralfate (Carafate) 1 gm PO QIDACANDBED [facility] Discontinued Medications Sodium Chloride (Normal Saline) 1,000 mls @ 999 mls/hr IV STAT ONE Stop: 02/07/18 11:51 Last Admin: 02/07/18 11:20 Dose: 999 mls/hr Lactated Ringer's (Ringers, Lactated) 1,000 mls @ 150 mls/hr IV ASDIRECTED [facility]ED[facility] Last Infusion: 02/07/18 22:15 Dose: Infused Piperacillin Sod/Tazobactam (Sod 4.5 gm/ Sodium Chloride) 100 mls @ 100 mls/hr IV ONETIME ONE Stop: 02/07/18 14:55 Last Admin: 02/07/18 14:00 Dose: 100 mls/hr Piperacillin Sod/Tazobactam (Sod 3.375 gm/ Sodium Chloride) 50 mls @ 100 mls/ hr IV Q8H [facility] Last Infusion: 02/08/18 07:15 Dose: Infused Iopamidol (Isovue Multipack-370 (76%)) 100 ml IVPUSH ONETIME STA Stop: 02/07/18 12:59 Last Admin: 02/07/18 13:04 Dose: 100 ml Ondansetron HCl (Zofran) 4 mg IVPUSH ONETIME ONE Stop: 02/07/18 10:52 Last Admin: 02/07/18 11:17 Dose: 4 mg Pantoprazole Sodium (Protonix Iv) 80 mg IVPUSH .BOLUS ONE Stop: 02/07/18 10:52 Last Admin: 02/07/18 11:20 Dose: 80 mg Pantoprazole Sodium (Protonix Iv) 40 mg IVPUSH DAILY [facility] Last Admin: 02/08/18 09:24 Dose: 40 mg - Exam Quality Assessment: Supplemental Oxygen General: Alert, Oriented HEENT: Pupils Equal, Pupils Reactive Lungs: Normal Respiratory Effort Cardiovascular: Regular Rate GI/Abdominal Exam: Soft, Non-Tender, No Distention, No Mass - Problem List & Annotations (1) Duodenal ulcer SNOMED Code(s): 43490540 Code(s): K26.9 - DUODENAL ULCER, UNSP ACUTE OR CHRONIC, W/O HEMOR OR PERF Status: Acute Current Visit: Yes (2) Helicobacter pylori infection SNOMED Code(s): 066330730 Code(s): A04.8 - OTHER SPECIFIED BACTERIAL INTESTINAL INFECTIONS Status: Acute Current Visit: Yes - Problem List Review Problem List Initiated/Reviewed/Updated: Yes - My Orders Last 24 Hours: My Active Orders 02/07/18 14:52 Patient Status [ADT] Routine Oxygen Therapy [RC] PRN Up ad Seema [RC] ASDIRECTED Vital Signs [RC] Q4H Ondansetron [Zofran] 4 mg IVPUSH Q6H PRN Promethazine [Phenergan] 25 mg IM Q6H PRN diphenhydrAMINE [Benadryl] 25 mg IVPUSH Q4H PRN Resuscitation Status Routine 02/07/18 14:53 Intake and Output [RC] 02/07/18 14:54 Scopolamine [Transderm-Scop] 1.5 mg TRDERM Q72H PRN 02/07/18 14:56 HYDROmorphone [Dilaudid] 0.5 mg IVPUSH Q1H PRN 02/07/18 15:00 Lactated Ringers [Ringers, Lactated] 1,000 ml IV ASDIRECTED Nicotine [Habitrol] 14 mg TRDERM DAILY 02/08/18 11:15 Amoxicillin [Amoxil] 1,000 mg PO BID Clarithromycin [Biaxin] 500 mg PO BID 02/08/18 11:30 Sucralfate [Carafate] 1 gm PO QIDACANDBED 02/08/18 17:00 Pantoprazole [ProTONIX] 40 mg PO BIDAC 02/08/18 Dinner Clear Liquid Diet [DIET] - Plan Plan:: EGD showed severe esophagitis, duodenitis, and gastritis as well as multiple ulcers in the duodenal bulb. Will switch his antibiotics to amoxicillin, clarithromycin, and flagyl. Will add sucralfate QID. He can start on a clear liquid diet today. If he tolerates that today may advance to regular but will take things slow. Will keep overnight for close observation as he starts his diet.
--- NOTE | 2018-02-08 11:24 | PCM.POSTAN ---
POST ANESTHESIA ASSESSMENT - MENTAL STATUS Mental Status: Alert (Return to [facility] bed 207.), Oriented - RESPIRATORY Respiratory Status: Respiratory Rate WNL, Airway Patent, O2 Saturation Stable - CARDIOVASCULAR CV Status: Pulse Rate WNL, Blood Pressure Stable - GASTROINTESTINAL GI Status: No Symptoms - POST OP HYDRATION Hydration Status: Adequate & Stable
[2018-02-08] MEDS: Amoxicillin 500 MG Cap PO SCH ×2 (11:56→20:29)
[2018-02-08] MEDS: metroNIDAZOLE 250 MG Tab PO SCH ×3 (11:57→23:30)
[2018-02-08] MEDS: Sucralfate Suspension 1 GM/10 ML Cup PO SCH ×3 (11:57→20:30)
--- NOTE | 2018-02-08 14:17 | OR ---
SURGEON: ELO CHURCH MD DATE OF PROCEDURE: 02/07/2018 PREOPERATIVE DIAGNOSES: 1. Duodenitis. 2. Helicobacter pylori infection. POSTOPERATIVE DIAGNOSES: 1. Helicobacter pylori infection. 2. Esophagitis. 3. Gastritis. 4. Duodenitis. 5. Duodenal ulcers. PROCEDURE PERFORMED: Diagnostic esophagogastroduodenoscopy. ANESTHESIA: MAC. INSTRUMENT USED: Olympus endoscope. EXTENT OF EXAM: To first portion of duodenum. PREPARATION: Good. LIMITATIONS: Severe inflammation and ulceration of the duodenum. INDICATIONS: The patient is a 37-year-old male, who presented to the emergency room yesterday with complaints of four days of abdominal pain, nausea, vomiting, and hematemesis. He was found to have leukocytosis of 21,000 and had a positive H. pylori antigen test. CT of the abdomen and pelvis revealed duodenitis. The patient was admitted to the hospital and given IV fluids, IV antibiotics, IV PPIs, and bowel rest. He is feeling better this morning. The decision was made to perform a diagnostic EGD. I explained the procedure, the expected perioperative course as well as the risks and benefits. The risks include perforation or bleeding. The patient verbalized understanding and wishes to proceed. PROCEDURE IN DETAIL: The patient was brought into the OR and placed in a beach chair position. A time-out was completed verifying the patient's name, age, date of , allergies, and procedure to be performed. A bite block was placed in the patient's mouth and continuous oxygen was provided via nasal cannula throughout the procedure. After adequate sedation was achieved, a well lubricated endoscope was placed in the patient's mouth and advanced under direct visualization to the level of first portion of the duodenum. This area had multiple ulcers and severe inflammation. Given this degree of inflammation, I was unable to transverse into the second portion of duodenum. A photograph was taken. The scope was then fully withdrawn while examining the remainder of the mucosa of the upper GI tract. A photograph was taken of the pylorus and the GE junction. Both appeared structurally normal. The stomach itself was severely inflamed with areas of very superficial ulceration. Biopsies were taken of the gastric antrum, body, and fundus and sent for histologic review and H. pylori testing. The scope was brought into the distal esophagus. A photograph was taken of the Z-line. The patient had severe distal esophagitis with no evidence of any bleeding or ulceration. No biopsies were taken. The remainder of the mid and upper esophageal mucosa appeared normal. The scope was removed and the procedure terminated. The patient was transferred to the PACU in stable condition. ENDOSCOPIC DIAGNOSES: 1. Helicobacter pylori infection. 2. Esophagitis. 3. Gastritis. 4. Duodenitis. 5. Duodenal ulcers. RECOMMENDATIONS: The patient will be transitioned to triple antibiotic therapy as well as oral PPIs and sucralfate. Fully advance diet. Monitor the patient closely overnight. VAMSHI SCHWARTZ /[id number]
--- NOTE | 2018-02-08 15:35 | PCM48HPAN ---
Post Anesthesia Note - EVALUATION WITHIN 48HRS OF ANESTHETIC Vital Signs in Normal Range: Yes Patient Participated in Evaluation: Yes Respiratory Function Stable: Yes Airway Patent: Yes Cardiovascular Function Stable: Yes Hydration Status Stable: Yes Pain Control Satisfactory: Yes Nausea and Vomiting Control Satisfactory: Yes Mental Status Recovered: Yes Resp Rate: 21
[2018-02-08] MEDS: Pantoprazole 40 MG Tab.CR PO SCH (16:09)
[2018-02-09] MEDS: Lactated Ringers 1,000 ML IV SCH ×2 (04:32→12:47)
[2018-02-09] MEDS: metroNIDAZOLE 250 MG Tab PO SCH ×2 (06:26→13:16)
[2018-02-09] MEDS: Pantoprazole 40 MG Tab.CR PO SCH (06:30)
[2018-02-09] MEDS: Sucralfate Suspension 1 GM/10 ML Cup PO SCH ×2 (06:30→13:16)
[2018-02-09] MEDS: Nicotine 14 MG/24 Hr Patch TRDERM SCH (08:58)
[2018-02-09] MEDS: Amoxicillin 500 MG Cap PO SCH (08:58)
--- NOTE | 2018-02-09 09:31 | PCM.DCSUM1 ---
Discharge Summary - Hospital Course Free Text/Narrative:: Patient is a 37-year-old male who presented to the emergency room with 4 days of nausea vomiting and loose and onset of hematemesis. He been sick before but this was unlike any other associated ever had. CBC showed a leukocytosis of 21, 000. He was positive for H. pylori antigen. CT of the abdomen pelvis showed evidence of duodenitis. His abdomen was clinically benign. He was admitted to the hospital. He was given IV fluids, IV antibiotics and pantoprazole, and made nothing by mouth. He was consented for diagnostic EGD. Next morning his white blood cell count was down to 14,000 and he underwent the procedure. This showed evidence of severe esophagitis, gastritis and duodenitis as well as multiple duodenal ulcers. After the procedure he was started on amoxicillin, clarithromycin, Flagyl, oral Protonix, and oral sucralfate. His diet was slowly advanced. He tolerated this well. This morning's CBC shows a normal white count. He tolerated a regular diet. He is ambulatory, his pain is gone, and he is making good urine. He is cleared for discharge. - Discharge Data Discharge Date: 02/09/18 Discharge Disposition: Home, Self-Care 01 Condition: Good - Discharge Diagnosis/Problem(s) (1) Duodenal ulcer SNOMED Code(s): 14611739 ICD Code: K26.9 - DUODENAL ULCER, UNSP ACUTE OR CHRONIC, W/O HEMOR OR PERF Status: Acute Current Visit: Yes (2) Helicobacter pylori infection SNOMED Code(s): 588037413 ICD Code: A04.8 - OTHER SPECIFIED BACTERIAL INTESTINAL INFECTIONS Status: Acute Current Visit: Yes (3) Esophagitis determined by endoscopy SNOMED Code(s): 83204960, 891252690 ICD Code: K20.9 - ESOPHAGITIS, UNSPECIFIED Status: Acute Current Visit: Yes (4) Gastritis and duodenitis SNOMED Code(s): 375144975 ICD Code: K29.90 - GASTRODUODENITIS, UNSPECIFIED, WITHOUT BLEEDING Status: Acute Current Visit: Yes - Patient Summary/Data Operative Procedure(s) Performed: Diagnostic EGD with biopsy - Patient Instructions Diet: Regular Diet as Tolerated Activity: Rest and Relax Today Driving: Do Not Drive Showering/Bathing: May Shower Wound/Incision Care: Keep Operative Site/Wound Site Clean and Dry Notify Provider of: Fever, Increased Pain, Nausea and/or Vomiting Other/Special Instructions: No work until MondayFebruary 13. No work restrictions after that. - Discharge Plan *PRESCRIPTION DRUG MONITORING PROGRAM REVIEWED*: Not Applicable *COPY OF PRESCRIPTION DRUG MONITORING REPORT IN PATIENT [place]: Not Applicable Prescriptions/Med Rec: Amoxicillin 1,000 mg PO BID #26 tab Clarithromycin [Biaxin] 500 mg PO BID #26 tablet metroNIDAZOLE 250 mg PO Q6H #52 tablet Pantoprazole [ProTONIX] 40 mg PO BIDAC #26 tab.cr Sucralfate 1 gm PO QIDACANDBED #52 tablet Home Medications: Home Meds Amoxicillin 1,000 mg PO BID #26 tab 02/09/18 [Rx] Clarithromycin [Biaxin] 500 mg PO BID #26 tablet 02/09/18 [Rx] Pantoprazole [ProTONIX] 40 mg PO BIDAC #26 tab.cr 02/09/18 [Rx] Sucralfate 1 gm PO QIDACANDBED #52 tablet 02/09/18 [Rx] metroNIDAZOLE 250 mg PO Q6H #52 tablet 02/09/18 [Rx] Forms: ED Department Discharge Referrals: PCP,None [Primary Care Provider] - - General Info Functional Status: Reports: Pain Controlled, Tolerating Diet, Ambulating, Urinating - Review of Systems General: Reports: No Symptoms Pulmonary: Reports: No Symptoms Cardiovascular: Reports: No Symptoms Gastrointestinal: Reports: No Symptoms - Patient Data Vitals - Most Recent: Last Vital Signs Temp 36.4 C 02/09/18 03:00 Pulse 76 02/09/18 03:00 Resp 18 02/09/18 03:00 BP 115/56 L 02/09/18 03:00 Pulse Ox 97 02/09/18 03:00 Weight - Most Recent: 104.326 kg I&O - Last 24 hours: Intake & Output 02/08/18 02/09/18 02/09/18 22:59 06:59 14:59 Intake Total 3275 2099 Output Total 1700 1100 Balance 1575 999 Lab Results - Last 24 hrs: Laboratory Results - last 24 hr 02/09/18 Range/Units 05:08 WBC 10.22 (4.0-11.0) K/uL RBC 4.97 (4.50-5.90) M/uL Hgb 14.5 (13.0-17.0) g/dL Hct 43.6 (38.0-50.0) % MCV 87.7 (80.0-98.0) fL MCH 29.2 (27.0-32.0) pg MCHC 33.3 (31.0-37.0) g/dL RDW Std Deviation 40.5 (28.0-62.0) fl RDW Coeff of Rusty 13 (11.0-15.0) % Plt Count 204 (150-400) K/uL MPV 9.80 (7.40-12.00) fL Nucleated RBC % 0.0 /100WBC Nucleated RBCs # 0 K/uL Med Orders - Current: Current Medications Amoxicillin (Amoxil) 1,000 mg PO BID [facility] Last Admin: 02/09/18 08:58 Dose: 1,000 mg Clarithromycin (Biaxin) 500 mg PO BID [facility] Last Admin: 02/09/18 08:57 Dose: 500 mg Diphenhydramine HCl (Benadryl) 25 mg IVPUSH Q4H PRN PRN Reason: Itching Hydromorphone HCl (Dilaudid) 0.5 mg IVPUSH Q1H PRN PRN Reason: Abdominal Pain Last Admin: 02/07/18 19:27 Dose: 0.5 mg Lactated Ringer's (Ringers, Lactated) 1,000 mls @ 125 mls/hr IV ASDIRECTED [facility] Last Admin: 02/09/18 04:32 Dose: 125 mls/hr Metronidazole (Metronidazole) 250 mg PO Q6H [facility] Last Admin: 02/09/18 06:26 Dose: 250 mg Nicotine (Habitrol) 14 mg TRDERM DAILY [facility] Last Admin: 02/09/18 08:58 Dose: 14 mg Ondansetron HCl (Zofran) 4 mg IVPUSH Q6H PRN PRN Reason: Nausea/Vomiting Last Admin: 02/08/18 16:06 Dose: 4 mg [facility] Admin: 02/09/18 06:30 Dose: 40 mg Promethazine HCl (Phenergan) 25 mg IM Q6H PRN PRN Reason: Nausea Scopolamine (Transderm-Scop) 1.5 mg TRDERM Q72H PRN PRN Reason: Nausea Sodium Chloride (Saline Flush) 10 ml FLUSH ASDIRECTED PRN PRN Reason: Keep Vein Open Sodium Chloride (Saline Flush) 2.5 ml FLUSH ASDIRECTED PRN PRN Reason: Keep Vein Open Sucralfate (Carafate) 1 gm PO QIDACANDBED [facility] Last Admin: 02/09/18 06:30 Dose: 1 gm Discontinued Medications Sodium Chloride (Normal Saline) 1,000 mls @ 999 mls/hr IV STAT ONE Stop: 02/07/18 11:51 Last Admin: 02/07/18 11:20 Dose: 999 mls/hr Lactated Ringer's (Ringers, Lactated) 1,000 mls @ 150 mls/hr IV ASDIRECTED [facility] Last Infusion: 02/07/18 22:15 Dose: Infused Piperacillin Sod/Tazobactam (Sod 4.5 gm/ Sodium Chloride) 100 mls @ 100 mls/hr IV ONETIME ONE Stop: 02/07/18 14:55 Last Admin: 02/07/18 14:00 Dose: 100 mls/hr Piperacillin Sod/Tazobactam (Sod 3.375 gm/ Sodium Chloride) 50 mls @ 100 mls/ hr IV Q8H [facility] Last Infusion: 02/08/18 07:15 Dose: Infused Iopamidol (Isovue Multipack-370 (76%)) 100 ml IVPUSH ONETIME STA Stop: 02/07/18 12:59 Last Admin: 02/07/18 13:04 Dose: 100 ml Ondansetron HCl (Zofran) 4 mg IVPUSH ONETIME ONE Stop: 02/07/18 10:52 Last Admin: 02/07/18 11:17 Dose: 4 mg Pantoprazole Sodium (Protonix Iv) 80 mg IVPUSH .BOLUS ONE Stop: 02/07/18 10:52 Last Admin: 02/07/18 11:20 Dose: 80 mg Pantoprazole Sodium (Protonix Iv) 40 mg IVPUSH DAILY [facility] Last Admin: 02/08/18 09:24 Dose: 40 mg - Exam General: Reports: Alert, Oriented, Cooperative HEENT: Reports: Pupils Equal Neck: Reports: Supple Lungs: Reports: Normal Respiratory Effort Cardiovascular: Reports: Regular Rate GI/Abdominal Exam: Soft, Non-Tender, No Distention, No Mass
[2018-02-09 14:07] VITALS: BP 112/62
== END 2018-02-09 13:40 | disposition home or self-care (01) ==
LOC: MW.ED 10:22 → MW.MS 14:52
PROVIDERS: ADMIT Surgery; ATTEND Surgery
DX: K29.80 Duodenitis without bleeding (principal); K26.9 Duodenal ulcer, unspecified as acute or chronic, without hemorrhage or perforation; K29.30 Chronic superficial gastritis without bleeding; K20.9 Esophagitis, unspecified; F17.210 Nicotine dependence, cigarettes, uncomplicated; Z79.2 Long term (current) use of antibiotics; Z79.899 Other long term (current) drug therapy
CPT/HCPCS: 36415; 43239; 74022; 74177; 80048; 80053; 81001; 82150; 83605; 83690; 85025; 85027; 86677; 88305; 88312; 96361; 96365; 96366; 96375; 96376; 99285; A9270; C9113; G0378; J1170; J2405; J2543; J7030; J7040; J7050; J7120; Q9967; 00731; 99283

== ENCOUNTER 2019-02-13 11:17 | Emergency (ER) | payer SELFPAY ==
[2019-02-13] MEDS: Sodium Chloride 0.9% 1,000 ML IV ONE (11:48)
--- NOTE | 2019-02-13 11:58 | EDM.PDOC ---
ED HPI GENERAL MEDICAL PROBLEM - General Chief Complaint: Genitourinary Problem Stated Complaint: PEEING BLOOD Time Seen by Provider: 02/13/19 11:20 Source of Information: Reports: Patient History Limitations: Reports: No Limitations - History of Present Illness INITIAL COMMENTS - FREE TEXT/NARRATIVE: HISTORY AND PHYSICAL: History of present illness: Patient is a 38-year-old male who presents to the emergency room with complaints of dysuria, difficulty starting his stream and cloudy/blood-tinged urine 3-4 days. He states that the symptoms have progressively gotten worse. He denies any concerns of STDs. He has no testicular pain, swelling or erythema. Patient denies any fever, chills, headache, change in vision, syncope or near syncope. Denies any chest pain, back pain, shortness of breath or cough. Denies any abdominal pain, nausea, vomiting, diarrhea, constipation. Patient has been eating and drinking appropriately. Review of systems: As per history of present illness and below otherwise all systems reviewed and negative. Past medical history: As per history of present illness and as reviewed below otherwise noncontributory. Surgical history: As per history of present illness and as reviewed below otherwise noncontributory. Social history: See social history for further information Family history: As per history of present illness and as reviewed below otherwise noncontributory. Physical exam: General: Well-developed and well-nourished 38-year-old male. Alert and oriented. Nontoxic appearing and in no acute distress. HEENT: Atraumatic, normocephalic, pupils equal and reactive bilaterally, negative for conjunctival pallor or scleral icterus, mucous membranes moist, trachea midline. No drooling or trismus noted. No meningeal signs. No hot potato voice noted. Lungs: Clear to auscultation, breath sounds equal bilaterally, chest nontender. Heart: S1S2, regular rate and rhythm without overt murmur Abdomen: Soft, nondistended, nontender. Negative for masses or hepatosplenomegaly. Negative for costovertebral tenderness. Pelvis: Stable nontender. Genitourinary: Normal appearing external genitalia. Skin: Intact, warm, dry. No lesions or rashes noted. Extremities: Atraumatic, moves all extremities per self without difficulty or deficits, negative for cords or calf pain. Neurovascular unremarkable. Neuro: Awake, alert, oriented. Cranial nerves II through XII unremarkable. Cerebellum unremarkable. Motor and sensory unremarkable throughout. Exam nonfocal. Notes: Patient does have a significant UTI. CT of the abdomen and pelvis does show a likely pyelonephritis. I did offer the patient admission. We discussed inpatient IV antibiotics versus outpatient oral antibiotics. He declines admission. He would like to try the outpatient oral antibiotics and states he will return if his symptoms do not improve or worsen. Supportive care measures were reviewed and discussed. Voices understanding and is agreeable to plan of care. Denies any further questions or concerns at this time. Diagnostics: CBC, CMP, UA, lactic acid, Blood Culture x 2 Therapeutics: IV fluids, Rocephin, Azithromycin Prescription: Cipro Pyridium Impression: UTI Plan: 1. Take your antibiotic as prescribed. Increase your oral fluids. 2. Tylenol and/or ibuprofen as needed for pain management. 3. Please follow-up with urology for further evaluation and management. Return to the ED as needed and as discussed. Definitive disposition and diagnosis as appropriate pending reevaluation and review of above. - Related Data Allergies Allergy/AdvReac Type Severity Reaction Status Date / Time bananas Allergy Itching Uncoded 02/13/19 11:29 Home Meds: Home Meds Ciprofloxacin HCl [Cipro] 500 mg PO BID 7 Days #14 tablet 02/13/19 [Rx] Phenazopyridine [Pyridium] 100 mg PO TID PRN 2 Days #6 tab 02/13/19 [Rx] Past Medical History - Past Health History Medical/Surgical History: Denies Medical/Surgical History HEENT History: Reports: Other (See Below) Other HEENT History: wears glasses Gastrointestinal History: Reports: GERD, Other (See Below) Other Gastrointestinal History: hx of H Pylori Endocrine/Metabolic History: Reports: Obesity/BMI 30+ - Infectious Disease History Infectious Disease History: Reports: None - Past Surgical History GI Surgical History: Reports: EGD Social & Family History - Family History Family Medical History: Noncontributory - Tobacco Use Smoking Status *Q: Current Every Day Smoker Years of Tobacco use: 24 Packs/Tins Daily: 2 - Caffeine Use Caffeine Use: Reports: Soda - Recreational Drug Use Recreational Drug Use: No ED ROS GENERAL - Review of Systems Review Of Systems: ROS reveals no pertinent complaints other than HPI. ED EXAM, RENAL/ - Physical Exam Exam: See Below (See dictation) Course - Vital Signs Last Recorded V/S: Last Vital Signs Temp 97.2 F 02/13/19 11:30 Pulse 108 H 02/13/19 11:30 Resp 16 02/13/19 11:30 BP 123/76 02/13/19 11:30 Pulse Ox 97 02/13/19 11:30 - Orders/Labs/Meds Orders: Active Orders 24 hr Category Date Time Status CULTURE BLOOD [BC] Stat Lab 02/13/19 12:42 Ordered CULTURE BLOOD [BC] Stat Lab 02/13/19 12:50 Received CULTURE URINE [RM] Stat Lab 02/13/19 11:33 Received Blood Culture x2 Reflex Set [OM.PC] Stat Oth 02/13/19 12:42 Ordered Labs: Laboratory Tests 02/13/19 02/13/19 02/13/19 Range/Units 11:33 11:45 11:45 WBC 13.38 H (4.0-11.0) K/uL RBC 5.10 (4.50-5.90) M/uL Hgb 15.1 (13.0-17.0) g/dL Hct 43.8 (38.0-50.0) % MCV 85.9 (80.0-98.0) fL MCH 29.6 (27.0-32.0) pg MCHC 34.5 (31.0-37.0) g/dL RDW Std Deviation 39.5 (28.0-62.0) fl RDW Coeff of Rusty 13 (11.0-15.0) % Plt Count 304 (150-400) K/uL MPV 10.60 (7.40-12.00) fL Add Manual Diff YES Neutrophils % (Manual) 78 (48.0-80.0) % Band Neutrophils % 7 % Lymphocytes % (Manual) 8 L (16.0-40.0) % Monocytes % (Manual) 7 (0.0-15.0) % Nucleated RBC % 0.0 /100WBC Absolute Seg Neuts 10.4 H (1.4-5.7) Band Neutrophils # 0.9 Lymphocytes # (Manual) 1.1 (0.6-2.4) Monocytes # (Manual) 0.9 H (0.0-0.8) Nucleated RBCs # 0 K/uL Lactate (0.20-2.00) mmol/L Sodium 129 L (136-148) mmol/L Potassium 3.3 L (3.5-5.1) mmol/L Chloride 90 L (98-107) mmol/L Carbon Dioxide 22.9 (21.0-32.0) mmol/L BUN 10 (7.0-18.0) mg/dL Creatinine 1.1 (0.8-1.3) mg/dL Est Cr Clr Drug Dosing 81.36 mL/min Estimated GFR (MDRD) > 60.0 ml/min Glucose 306 H (74-106) mg/dL Calcium 9.5 (8.5-10.1) mg/dL Total Bilirubin 1.2 H (0.2-1.0) mg/dL AST 27 (15-37) IU/L ALT 25 (14-63) IU/L Alkaline Phosphatase 105 (46-116) U/L Total Protein 7.9 (6.4-8.2) g/dL Albumin 3.1 L (3.4-5.0) g/dL Globulin 4.8 H (2.6-4.0) g/dL Albumin/Globulin Ratio 0.7 L (0.9-1.6) Urine Color DARK YELLOW Urine Appearance CLOUDY Urine pH 5.5 (5.0-8.0) Ur Specific [place] >= 1.030 (1.001-1.035) Urine Protein 100 H (NEGATIVE) mg/dL Urine Glucose (UA) NEGATIVE (NEGATIVE) mg/dL Urine Ketones >=80 (NEGATIVE) mg/dL Urine Occult Blood LARGE H (NEGATIVE) Urine Nitrite POSITIVE H (NEGATIVE) Urine Bilirubin LARGE H (NEGATIVE) Urine Ictotest NEGATIVE Urine Urobilinogen 2.0 H (<2.0) EU/dL Ur Leukocyte Esterase MODERATE H (NEGATIVE) Urine RBC 10-12 (0-2/HPF) Urine WBC TO NUMEROUS TO COUNT H (0-5/HPF) Ur Epithelial Cells MODERATE (NONE-FEW) Urine Bacteria 2+ H (NEGATIVE) Hyaline Casts 0-3 (0-2/LPF) Urine Mucus MODERATE (NONE-MOD) 02/13/19 Range/Units 12:42 WBC (4.0-11.0) K/uL RBC (4.50-5.90) M/uL Hgb (13.0-17.0) g/dL Hct (38.0-50.0) % MCV (80.0-98.0) fL MCH (27.0-32.0) pg MCHC (31.0-37.0) g/dL RDW Std Deviation (28.0-62.0) fl RDW Coeff of Rusty (11.0-15.0) % Plt Count (150-400) K/uL MPV (7.40-12.00) fL Add Manual Diff Neutrophils % (Manual) (48.0-80.0) % Band Neutrophils % % Lymphocytes % (Manual) (16.0-40.0) % Monocytes % (Manual) (0.0-15.0) % Nucleated RBC % /100WBC Absolute Seg Neuts (1.4-5.7) Band Neutrophils # Lymphocytes # (Manual) (0.6-2.4) Monocytes # (Manual) (0.0-0.8) Nucleated RBCs # K/uL Lactate 1.3 (0.20-2.00) mmol/L Sodium (136-148) mmol/L Potassium (3.5-5.1) mmol/L Chloride (98-107) mmol/L Carbon Dioxide (21.0-32.0) mmol/L BUN (7.0-18.0) mg/dL Creatinine (0.8-1.3) mg/dL Est Cr Clr Drug Dosing mL/min Estimated GFR (MDRD) ml/min Glucose (74-106) mg/dL Calcium (8.5-10.1) mg/dL Total Bilirubin (0.2-1.0) mg/dL AST (15-37) IU/L ALT (14-63) IU/L Alkaline Phosphatase (46-116) U/L Total Protein (6.4-8.2) g/dL Albumin (3.4-5.0) g/dL Globulin (2.6-4.0) g/dL Albumin/Globulin Ratio (0.9-1.6) Urine Color Urine Appearance Urine pH (5.0-8.0) Ur Specific [place] (1.001-1.035) Urine Protein (NEGATIVE) mg/dL Urine Glucose (UA) (NEGATIVE) mg/dL Urine Ketones (NEGATIVE) mg/dL Urine Occult Blood (NEGATIVE) Urine Nitrite (NEGATIVE) Urine Bilirubin (NEGATIVE) Urine Ictotest Urine Urobilinogen (<2.0) EU/dL Ur Leukocyte Esterase (NEGATIVE) Urine RBC (0-2/HPF) Urine WBC (0-5/HPF) Ur Epithelial Cells (NONE-FEW) Urine Bacteria (NEGATIVE) Hyaline Casts (0-2/LPF) Urine Mucus (NONE-MOD) Meds: Medications Discontinued Medications Generic Name Dose Route Start Last Admin Trade Name Freq PRN Reason Stop Dose Admin Azithromycin 1,000 mg 02/13/19 13:12 Zithromax PO 02/13/19 13:13 NOW STA Sodium Chloride 1,000 mls @ 999 mls/hr 02/13/19 11:19 02/13/19 11:48 Normal Saline IV 02/13/19 12:19 999 mls/hr STAT ONE Administration Ceftriaxone Sodium/Dextrose 1 50 mls @ 100 mls/hr 02/13/19 12:41 gm/ Premix IV 02/13/19 13:10 ONETIME ONE Departure - Departure Time of Disposition: 13:14 Disposition: Home, Self-Care 01 Clinical Impression: UTI, Urinary tract infectious disease - Discharge Information Prescriptions: Ciprofloxacin HCl [Cipro] 500 mg PO BID 7 Days #14 tablet Phenazopyridine [Pyridium] 100 mg PO TID PRN 2 Days #6 tab PRN Reason: Dysuria Instructions: Urinary Tract Infection, Adult, [id number] Referrals: PCP,Unknown [Primary Care Provider] - Forms: ED Department Discharge Additional Instructions: The following information is given to patients seen in the emergency department who are being discharged to home. This information is to outline your options for follow-up care. We provide all patients seen in our emergency department with a follow-up referral. The need for follow-up, as well as the timing and circumstances, are variable depending upon the specifics of your emergency department visit. If you don't have a primary care physician on staff, we will provide you with a referral. We always advise you to contact your personal physician following an emergency department visit to inform them of the circumstance of the visit and for follow-up with them and/or the need for any referrals to a consulting specialist. The emergency department will also refer you to a specialist when appropriate. This referral assures that you have the opportunity for follow-up care with a specialist. All of these measure are taken in an effort to provide you with optimal care, which includes your follow-up. Under all circumstances we always encourage you to contact your private physician who remains a resource for coordinating your care. When calling for follow-up care, please make the office aware that this follow-up is from your recent emergency room visit. If for any reason you are refused follow-up, please contact the [facility] Emergency Department at and asked to speak to the emergency department charge nurse. [facility] Primary Care [address] [place] [id number] [facility] Specialty Care - Urology [address] [place] [id number] 1. Take your antibiotic as prescribed. Increase your oral fluids. 2. Tylenol and/or ibuprofen as needed for pain management. 3. Please follow-up with urology for further evaluation and management. Return to the ED as needed and as discussed. - My Orders Last 24 Hours: My Active Orders 02/13/19 11:33 CULTURE URINE [RM] Stat 02/13/19 12:42 CULTURE BLOOD [BC] Stat Blood Culture x2 Reflex Set [OM.PC] Stat 02/13/19 12:50 CULTURE BLOOD [BC] Stat - Assessment/Plan Last 24 Hours: My Active Orders 02/13/19 11:33 CULTURE URINE [RM] Stat 02/13/19 12:42 CULTURE BLOOD [BC] Stat Blood Culture x2 Reflex Set [OM.PC] Stat 02/13/19 12:50 CULTURE BLOOD [BC] Stat
[2019-02-13 12:21] LABS: BLOOD UREA NITROGEN,BUN 10 mg/dL (7.0-18.0); CARBON DIOXIDE,CO2 22.9 mmol/L (21.0-32.0); CHLORIDE,CL 90 mmol/L (98-107); GLUCOSE RANDOM 306 mg/dL (74-106); POTASSIUM,K 3.3 mmol/L (3.5-5.1); SODIUM,NA 129 mmol/L (136-148)
--- NOTE | 2019-02-13 13:08 | CT ---
INDICATION: Hematuria. Burning with urination. TECHNIQUE: A CT volumetric acquisition was performed of the abdomen and pelvis without intravenous contrast. COMPARISON: None. FINDINGS: The CT images demonstrate normal aeration of the lung bases. There is no evidence of pleural or pericardial fluid. Within the abdomen there is generalized hepatic steatosis. The spleen and pancreas appear normal. There is layering density within the gallbladder suggesting combination of biliary sludge and small stones. There is no evidence of acute inflammation within the gallbladder wall or bile duct dilatation. The adrenal glands and right kidney appear normal. There is edema within the left kidney with perinephric fat stranding. Within the medial cortex lower pole left kidney there is a 2.3 cm rounded low density area suggesting a cortical cyst. There is no evidence of a calculus or hydronephrosis within the left kidney. The abdominal aorta appears normal. There is no evidence retroperitoneal lymphadenopathy. The appendix is visualized in the right pelvis and appears normal. There is normal appearance of the small intestine and colon. Prostate gland appears normal in size. Urinary bladder is partially filled. The wall appears uniformly thickened. IMPRESSION: Abnormal appearance of the left kidney which may reflect pyelonephritis. The partially filled urinary bladder also has a thickened wall which could indicate associated cystitis. Recommend correlation with urinalysis. Generalized hepatic steatosis. Cholelithiasis. Please note that all CT scans at this facility use dose modulation, iterative reconstruction, and/or weight-based dosing when appropriate to reduce radiation dose to as low as reasonably achievable. Dictated by Seb Zuleta MD @ Feb 13 2019 12:58PM Signed by Dr. Seb Zuleta @ Feb 13 2019 1:06PM
[2019-02-13] MEDS: Azithromycin 250 MG Tab PO STA (13:22)
[2019-02-13] MEDS: cefTRIAXone 1 GM in Premix Bag 1 BAG IV ONE (13:23)
[2019-02-13 14:12] VITALS: BP 109/65
== END 2019-02-13 14:11 | disposition home or self-care (01) ==
LOC: MW.ED 11:17
DX: N39.0 Urinary tract infection, site not specified (principal); E66.9 Obesity, unspecified; F17.210 Nicotine dependence, cigarettes, uncomplicated; Z91.018 Allergy to other foods
CPT/HCPCS: 36415; 74176; 80053; 81001; 83605; 85025; 87040; 87086; 87088; 87186; 96361; 96365; 99284; A9270; J0696; J7040